=== PATIENT | female | born 1965 | race Caucasian/White ===

== ENCOUNTER → 2021-09-03 16:48 | Outpatient (CLI) | payer BC, SELFPAY ==
--- NOTE | ~2021-09-03 | XR_ITS ---
XR cervical spine 4-5V 09/03/2021 17:07 Indication: Neck pain Procedure: 5 views of the cervical spine Comparison: No prior studies for comparison. Findings: There is disc narrowing and endplate hypertrophy at C5-6. No fracture, subluxation or dislo cation. There is uncinate hypertrophy at C5-6. Lung apices are normal. No acute fracture or traumatic malalignment. Impression: 1: Mild cervical spondylosis. Reviewed, dictated and finalized at location A. Impression: 1: Mild cervical spondylosis.
== END ==
PROVIDERS: PCP Family Medicine; Visit Provider Family Medicine
DX: M47.22 Other spondylosis with radiculopathy, cervical region (principal)
CPT/HCPCS: 72050

== ENCOUNTER 2021-11-03 00:20 | Day surgery (SDC) | payer BC, SELFPAY ==
[2021-10-19 13:47] VITALS: BMI 26.4
[2021-11-03 09:07] VITALS: BP 102/77; PULSE 61; RESP 18; TEMP 37; O2SAT 100
--- NOTE | 2021-11-03 09:11 | WPDANESEPPF ---
Anes - Initial Pre Proc Eval Procedure: Operation Date: 11/03/21 10:15 Proposed Procedures p Screening Colonoscopy - Jai Oneill MD Date/Time: 11/03/21 09:11 Surgeon: Jai Oneill MD Pre Op Diagnosis: neoplasm screening Patient Data Age: 56 Gender: F Height: 1.63 m Weight: 70 kg Last Vital Signs Temp 37.0 C 11/03/21 09:07 Pulse 61 11/03/21 09:07 Resp 18 11/03/21 09:07 BP 102/77 11/03/21 09:07 Pulse Ox 100 11/03/21 09:07 O2 Del Method Room Air 11/03/21 09:07 Allergies Allergy/AdvReac Type Severity Reaction Status Date / Time No Known Allergies Allergy Verified 11/03/21 09:05 Home Medications Medication Instructions Recorded Confirmed Type acetylcyst 200 mg-lipoic 200 1 cap PO DAILY 08/18/21 10/19/21 History mg-milk thistle 262.5 mg-selenom capsule (Liver Protect) cholecalciferol (vitamin D3) 125 5,000 unit PO DAILY 08/18/21 10/19/21 History mcg (5,000 unit) capsule estradiol 0.5 mg tablet 0.5 mg PO DAILY 08/18/21 10/19/21 History medroxyprogesterone 2.5 mg tablet 2.5 mg PO DAILY 08/18/21 10/19/21 History sertraline 50 mg tablet 50 mg PO DAILY 3 months #90 tabs 08/18/21 10/19/21 Rx Patient hx anesthesia problems: none Family hx anesthesia problems: none Results Review: All pre-operative results and documents have been reviewed as part of the pre-operative evaluation. [facility] Past Medical History Medical History (Updated 11/03/21 @ 09:12 by Emmanuel Tello MD) Cervical radiculopathy Degeneration of C5-C6 intervertebral disc Generalized anxiety disorder Pilonidal cyst Family History Family History Grandparent Diabetes mellitus Heart disease Mother Hypertension Father Hypertension Depression Cerebrovascular accident Other Breast cancer Sibling Depression Social History Social History Smoking status: Never smoker Alcohol intake: current Drinks per week: 4 Alcohol use details: socially Substance use: never Substance use type: does not use Living arrangements: with family Spiritual care concerns: No Anes - Eval Final PreProcedure Day of Procedure 11/03/21 09:11 Patient weight: overweight Heart: regular rate and rhythm Lungs: clear to auscultation and normal air movement Airway: Mallampati scale class II Neurological: alert and oriented Last oral intake: >/= 8 hours ASA classification: II Emergent: no Anesthetic plan: proceed Anesthesia type and monitoring: general GIVS Results Review: All pre-operative results and documents have been reviewed as part of the pre-operative evaluation. Informed Consent: The patient's anesthetic plan and its attendant risks and benefits were discussed with the patient/family/POA. Questions were solicited and answers provided to the satisfaction of the patient/family/POA.
[2021-11-03] MEDS: LACTATED RINGERS 1,000 ML 150 ML IV CONT (09:22)
--- NOTE | 2021-11-03 09:56 | PM.HPGS ---
History of Present Illness History of Present Illness Consent: Risks, benefits, and alternatives have been discussed and questions answered. Patient agrees to proceed with procedure. Chief complaint: neoplasm screening Narrative: Mihir Forrester is a 56 year old female here for first screening colonoscopy Review of Systems Constitutional: Constitutional: Denies headache(s) and Denies weakness Eyes: Eyes: Denies blurry vision ENT: Reports Normal hearing present, Denies headache(s) and Denies neck pain Cardiovascular: Cardiovascular: Denies chest pain and Denies dyspnea Respiratory: Respiratory: Denies dyspnea Gastrointestinal: Gastrointestinal: Reports no additional gastrointestinal complaints Genitourinary: Genitourinary: Denies dysuria Musculoskeletal: Musculoskeletal: Denies neck pain Integumentary/Breasts: Skin/Breast: Denies dry skin Neurologic: Reports Normal hearing present, Denies headache(s) and Denies weakness Psychiatric: Psychiatric: Denies anxiety Endocrine: Endocrine: Denies change in body appearance Hematologic/Lymphatic: Hematologic/Lymphatic: Denies easy bleeding Allergic/Immunologic: Allergic/Immunologic: Denies urticaria [facility] Past Medical History Medical History (Updated 11/03/21 @ 09:57 by Jai Oneill MD) Cervical radiculopathy Colon cancer screening Degeneration of C5-C6 intervertebral disc Generalized anxiety disorder Pilonidal cyst Family History Family History Grandparent Diabetes mellitus Heart disease Mother Hypertension Father Hypertension Depression Cerebrovascular accident Other Breast cancer Sibling Depression Social History Social History Smoking status: Never smoker Alcohol intake: current Drinks per week: 4 Alcohol use details: socially Substance use: never Substance use type: does not use Living arrangements: with family Spiritual care concerns: No Meds Home Medications and Allergies Home Medications Medication Instructions Recorded Confirmed Type acetylcyst 200 mg-lipoic 200 1 cap PO DAILY 08/18/21 10/19/21 History mg-milk thistle 262.5 mg-selenom capsule (Liver Protect) cholecalciferol (vitamin D3) 125 5,000 unit PO DAILY 08/18/21 10/19/21 History mcg (5,000 unit) capsule estradiol 0.5 mg tablet 0.5 mg PO DAILY 08/18/21 10/19/21 History medroxyprogesterone 2.5 mg tablet 2.5 mg PO DAILY 08/18/21 10/19/21 History sertraline 50 mg tablet 50 mg PO DAILY 3 months #90 tabs 08/18/21 10/19/21 Rx Allergies Allergy/AdvReac Type Severity Reaction Status Date / Time No Known Allergies Allergy Verified 11/03/21 09:05 Vital Signs Vital Signs - 24 hr 11/03/21 09:07 Temperature 98.6 F Pulse Rate 61 Respiratory Rate 18 Blood Pressure 102/77 Pulse Oximetry 100 Oxygen Delivery Room Air Exam Const: General: comfortable and no acute distress HENMT: General nose exam: Normal nares present Eyes: General: appearance normal, both eyes and all related structures Neck: Neck: no JVD Resp: Auscultation: clear to auscultation bilaterally Cardio: Rate: regular rate Rhythm: regular rhythm GI: Inspection: non-distended GI Palp: Yes Soft to palpation Skin: General skin exam: normal color Neuro: General: gait normal Speech: normal speech Extrem: General: normal to inspection Psych: Mental Status: mental status grossly normal Assessment and Plan Assessment and plan (1) Colon cancer screening: Code(s): Z12.11 - Encounter for screening for malignant neoplasm of colon Status: Acute Assessment and Plan: colonoscopy
[2021-11-03 10:23] VITALS: BP 95/51; PULSE 56; RESP 19; O2SAT 100
[2021-11-03 10:33] VITALS: BP 108/86; PULSE 55; RESP 14; O2SAT 100
[2021-11-03 10:43] VITALS: BP 110/74; PULSE 60; RESP 16; O2SAT 100
== END 2021-11-03 10:47 | disposition home or self-care (01) ==
PROVIDERS: PCP Family Medicine; Visit Provider Internal Medicine Gastroenterology
PROC: 0DJD8ZZ Inspection of Lower Intestinal Tract, Via Natural or Artificial Opening Endoscopic (ICD-10-PCS; CPT 45378; principal; 2021-11-03 10:15)
DX: Z12.11 Encounter for screening for malignant neoplasm of colon (principal); M54.12 Radiculopathy, cervical region; F41.1 Generalized anxiety disorder
CPT/HCPCS: 45378; J2001; J2704; J7120

== ENCOUNTER → 2022-02-23 10:05 | Outpatient (CLI) | payer BC, SELFPAY ==
--- NOTE | ~2022-02-23 | XR_ITS ---
XR shoulder RT min 2V DATE: 02/23/2022 10:24 INDICATION: Right shoulder pain TECHNIQUE: 4 views COMPARISON: None FINDINGS: No fracture or dislocation, periosteal reaction or bone destruction or abnormal soft tissue calcification. Normal alignment at the acromioclavicular and glenohumeral joints. IMPRESSION: Negative Reviewed, dictated and finalized at location A. [employer] IMPRESSION: Negative
== END ==
PROVIDERS: PCP Clinical Nurse Specialist; Visit Provider Clinical Nurse Specialist
DX: M25.511 Pain in right shoulder (principal)
CPT/HCPCS: 73030